=== PATIENT | male | born 1990 | race Caucasian/White ===

== ENCOUNTER 2016-12-25 16:42 | Emergency (ER) | payer OTHER ==
[~2016-12-25] VITALS: Ht 185.4 cm; Wt 87.0 kg
[2016-12-25 16:47] VITALS: Ht 185.4 cm; Wt 87.0 kg
[2016-12-25] MEDS ORDERED: ONDANSETRON (ODT) 4 MG TAB ODT STA (17:35)
--- NOTE | 2016-12-25 17:59 | ERD ---
ER Documentation Chief Complaint Date/Time DATE: 12/25/16 TIME: 17:57 Chief Complaint GENITAL DISCHARGE HPI Patient is a 26-year-old male with no medical problems who presents with discharge from his penis. He said this started a few days ago. He said that he had protected sex with a stranger and that otherwise he is in a monogamous relationship with his girlfriend. He had chlamydia in the past 3 years ago and says this feels the same. He has no fevers. He has had some burning in his penis. He has no testicular pain or swelling. He does not currently have a primary doctor. He has had no treatment as of yet. ROS All systems reviewed and are negative except as per history of present illness. Allergies Allergies: Coded Allergies: No Known Allergy (Unverified , 12/25/16) PMhx/Soc Medical and Surgical Hx: pt denies Medical Hx FmHx Family History: No diabetes Physical Exam Vitals Vital Signs Date Time Temp Pulse Resp B/P Pulse Ox O2 Delivery O2 Flow Rate FiO2 12/25/16 16:47 98.1 89 18 139/67 99 Physical Exam Const: No acute distress Head: Atraumatic Eyes: Normal Conjunctiva ENT: Normal External Ears, Nose and Mouth. Neck: Full range of motion..~ No meningismus. Resp: Clear to auscultation bilaterally Cardio: Regular rate and rhythm, no murmurs Abd: Soft, non tender, non distended. Normal bowel sounds Skin: No petechiae or rashes Back: No midline or flank tenderness Ext: No cyanosis, or edema Neur: Awake and alert : Normal circumcised male without signs of testicular pain or swelling, no discharge visible from the meatus Results 24 hrs Current Medications Medications (Trade) Dose Ordered Sig/Xavier Route PRN Reason Start Time Stop Time Status Last Admin Dose Admin Ceftriaxone Sodium (Rocephin) 250 mg ONCE ONCE IM 12/25/16 18:00 12/25/16 18:01 12/25/16 17:56 Azithromycin (Zithromax) 1,000 mg ONCE ONCE PO 12/25/16 18:00 12/25/16 18:01 12/25/16 17:55 Ondansetron HCl (Zofran Odt) 4 mg ONCE STAT ODT 12/25/16 17:35 12/25/16 17:36 DC 12/25/16 17:55 Procedures/MDM GC and Chlamydia is pending. Patient is a 26-year-old male who presents with discharge from his penis. I will send a GC and chlamydia screen and will treat him with ceftriaxone IM and Zithromax by mouth empirically to treat both gonorrhea and chlamydia. I told him that he would need to treat any partners including his girlfriend in case they are infected as well. The patient can return for any worsening symptoms. I believe outpatient management is appropriate at this time. He was encouraged to practice safe sex practices in the future. Departure Diagnosis: Primary Impression: STD (male) Condition: Fair Patient Instructions: Std, Suspected (Culture Only) Referrals: [facility] YOU HAVE RECEIVED A MEDICAL SCREENING EXAM AND THE RESULTS INDICATE THAT YOU DO NOT HAVE A CONDITION THAT REQUIRES URGENT TREATMENT IN THE EMERGENCY DEPARTMENT. FURTHER EVALUATION AND TREATMENT OF YOUR CONDITION CAN WAIT UNTIL YOU ARE SEEN IN YOUR DOCTORS OFFICE WITHIN THE NEXT 1-2 DAYS. IT IS YOUR RESPONSIBILITY TO MAKE AN APPOINTMENT FOR FOLOW-UP CARE. IF YOU HAVE A PRIMARY DOCTOR --you should call your primary doctor and schedule an appointment IF YOU DO NOT HAVE A PRIMARY DOCTOR YOU CAN CALL OUR PHYSICIAN REFERRAL HOTLINE AT IF YOU CAN NOT AFFORD TO SEE A PHYSICIAN YOU CAN CHOSE FROM THE FOLLOWING [facility] [address] [facility]. [facility] [address] [facility] [facility] [address] [facility]. [facility] [address] [facility]. [facility] [address] [facility]. [facility]. [address] Additional Instructions: Call your primary care doctor TOMORROW for an appointment during the next 1-2 days.See the doctor sooner or return here if your condition worsens before your appointment time. CARLOS KAUR MD Dec 25, 2016 17:59
[2016-12-25] MEDS ORDERED: CEFTRIAXONE 250 MG INJ IM ONE (18:00)
[2016-12-25] MEDS ORDERED: AZITHROMYCIN 250 MG TAB PO ONE (18:00)
== END 2016-12-25 18:03 | disposition home or self-care (01) ==
LOC: FTE 16:42
DX: A64 Unspecified sexually transmitted disease (principal)
CPT/HCPCS: 87591; 96372; J0696; Z7502; Z7610